=== PATIENT | male | born 1945 | race Caucasian/White ===

== ENCOUNTER 2018-09-14 20:30 | Inpatient (IN) | payer MEDICARE, OTHER ==
[~2018-09-14] VITALS: Ht 177.8 cm; Wt 82.8 kg
[2018-09-14] MEDS ORDERED: AMIODARONE 50 MG/ML, 3ML ONE (20:53)
[2018-09-14] MEDS ORDERED: PROPOFOL 100 ML IV ONE (20:53)
[2018-09-14 21:01] LABS: BASOPHILS # (AUTO) 0.09 x10^3/uL (0-0.1); BASOPHILS % (AUTO) 1 % (0-1); EOSINOPHILS # (AUTO) 0.06 x10^3/uL (0-0.4); EOSINOPHILS % (AUTO) 1 % (1-7); LYMPHOCYTES # (AUTO) 3.54 x10^3/uL (1-3.4); LYMPHOCYTES % (AUTO) 26 % (22-44); MD NO; MEAN CORPUSCULAR HEMOGLOBIN 35.3 pg (27.5-34.5); MEAN CORPUSCULAR HGB CONC 34.7 g/dL (33.2-36.2); MEAN CORPUSCULAR VOLUME 101.6 fL (81-97); MEAN PLATELET VOLUME 9.9 fL (7.4-10.4); MONOCYTES % (AUTO) 5 % (2-9); NEUTROPHILS # (AUTO) 9.07 x10^3/uL (1.8-6.8); NEUTROPHILS % (AUTO) 67 % (42-75); PLATELET COUNT 191 x10^3/uL (130-400); RED BLOOD COUNT 4.72 x10^6/uL (4.38-5.82); RED CELL DISTRIBUTION WIDTH 14.5 % (9.4-14.8)
--- NOTE | 2018-09-14 21:01 | NUR ---
AMIODARONE ADMINISTERED, PT RATE REDUCED TO 70-80S, NO COMPLAINTS AT THIS TIME
[2018-09-14 21:12] LABS: ALBUMIN 3.9 g/dL (3.4-5.0); ANION GAP 12 mmol/L (5-15); CALCIUM 8.9 mg/dL (8.5-10.1); CHLORIDE 108 mmol/L (98-107); CREATININE 1.15 mg/dL (0.7-1.3)
[2018-09-14 21:16] LABS: TROPONIN I 0.061 ng/mL (0.000-0.045)
[2018-09-14] MEDS ORDERED: ALLO300T PO (21:17)
[2018-09-14] MEDS ORDERED: LOSA25TA25 PO (21:17)
[2018-09-14] MEDS ORDERED: PANT20TA3 PO (21:17)
[2018-09-14] MEDS ORDERED: APIX5TAB PO (21:17)
[2018-09-14] MEDS ORDERED: AMIODARONE 900 MG in DEXTROSE 5% 482 ML IV PRN (21:35)
--- NOTE | 2018-09-14 21:54 | NUR ---
PT IN TO V-TACH 200-210 FOR 2ND TIME, 150 AMIO ADMIN, AMIO DRIP STARTED, PT HR 70-90. NO COMPLAINTS AT THIS TIME
[2018-09-14] MEDS ORDERED: MAGNESIUM SULFATE PMX 2GM/50ML 50 ML IVPB ONE (22:00)
[2018-09-14] MEDS ORDERED: FILTER 0.22 MICRON IV PRN (22:00)
[2018-09-14] MEDS ORDERED: AMIODARONE 50 MG/ML, 3ML IVPush ONE ×2 (22:00)
--- NOTE | 2018-09-14 22:25 | NUR ---
PT LAYING IN GURNEY, AWAKE/ALERT. NAD NOTED. NSR 80'S NOTED ON MONITOR. PT CONVERSING WITH SO AT BEDSIDE. MEDICATIONS INFUSING PER ORDER.
[2018-09-14] MEDS ORDERED: SODIUM CHLORIDE FLUSH 10ML SYR IVF PRN (22:30)
[2018-09-14] MEDS ORDERED: ATROPINE SYRINGE 0.1 MG/ML, 10ML ONE (23:00)
--- NOTE | 2018-09-14 23:05 | NUR ---
PT LAYING IN GUNREY, AWAKE/ALERT; NAD NOTED. PT DENIES CP/DIZZINESS/WEAKNESS AT THIS TIME. NSR ON MONITOR, HR 80'S.
--- NOTE | 2018-09-14 23:18 | NUR ---
REPORT CALLED TO [facility] IN ICU.
[2018-09-15 00:08] VITALS: BP 117/65
[2018-09-15] MEDS ORDERED: SODIUM CHLORIDE 0.9% 1,000 ML IV SCH (00:56)
[2018-09-15] MEDS ORDERED: POLYETHYLENE GLYCOL 17 GM PACKET PO PRN (01:00)
[2018-09-15] MEDS ORDERED: OXYcodone IR 5MG TABLET PO PRN (01:00)
[2018-09-15] MEDS ORDERED: BISACODYL 10 MG SUPP PR PRN (01:00)
[2018-09-15] MEDS ORDERED: ONDANSETRON ODT 4 MG PO PRN (01:00)
[2018-09-15] MEDS ORDERED: morphine SULFATE 10 MG/ML, 1ML IVPush PRN (01:00)
[2018-09-15] MEDS ORDERED: PROMETHAZINE 25 MG/ML, 1ML IM PRN (01:00)
[2018-09-15] MEDS ORDERED: DOCUSATE 100 MG CAPSULE PO PRN (01:00)
[2018-09-15] MEDS ORDERED: hydrALAzine 20 MG/ML, 1ML IVPush PRN (01:00)
[2018-09-15] MEDS ORDERED: LABETALOL 5MG/ML, 20ML IVPush PRN (01:00)
[2018-09-15] MEDS ORDERED: ONDANSETRON 2MG/ML, 2ML IVPush PRN (01:00)
[2018-09-15 02:03] LABS: FREE T4 (FREE THYROXINE) 0.79 ng/dL (0.76-1.46); THYROID STIMULATING HORMONE 2.89 mIU/L (0.358-3.740)
[2018-09-15 02:05] LABS: HEMOGLOBIN A1C 5.6 % (4.2-6.3)
[2018-09-15 04:00] VITALS: BP 106/71
[2018-09-15 04:27] LABS: BASOPHILS # (AUTO) 0.09 x10^3/uL (0-0.1); BASOPHILS % (AUTO) 1 % (0-1); EOSINOPHILS # (AUTO) 0.06 x10^3/uL (0-0.4); EOSINOPHILS % (AUTO) 1 % (1-7); LYMPHOCYTES # (AUTO) 3.06 x10^3/uL (1-3.4); LYMPHOCYTES % (AUTO) 32 % (22-44); MD NO; MEAN CORPUSCULAR HEMOGLOBIN 35.1 pg (27.5-34.5); MEAN CORPUSCULAR HGB CONC 34.3 g/dL (33.2-36.2); MEAN CORPUSCULAR VOLUME 102.2 fL (81-97); MEAN PLATELET VOLUME 10.2 fL (7.4-10.4); MONOCYTES # (AUTO) 0.73 x10^3/uL (0.2-0.8); MONOCYTES % (AUTO) 8 % (2-9); NEUTROPHILS # (AUTO) 5.63 x10^3/uL (1.8-6.8); NEUTROPHILS % (AUTO) 59 % (42-75); PLATELET COUNT 153 x10^3/uL (130-400); RED BLOOD COUNT 4.02 x10^6/uL (4.38-5.82); RED CELL DISTRIBUTION WIDTH 14.2 % (9.4-14.8)
[2018-09-15 04:39] LABS: CHLORIDE 112 mmol/L (98-107)
[2018-09-15 04:48] LABS: ALANINE AMINOTRANSFERASE 135 U/L (12-78); ALKALINE PHOSPHATASE 118 U/L (45-117); ANION GAP 11 mmol/L (5-15); BILIRUBIN,TOTAL 0.4 mg/dL (0.2-1.0); CALCIUM 7.9 mg/dL (8.5-10.1); CHOL/HDL RATIO 4.4; CHOLESTEROL, TOTAL 145 mg/dL (140-239); HDL CHOL % 23 % (26-37); HDL CHOLESTEROL (DIRECT) 33 mg/dL (40-60); LDL CHOLESTEROL,CALCULATED 80 mg/dL (54-169); LDL/HDL RATIO 2.4 (0.5-3.0); TOTAL PROTEIN 6.3 g/dL (6.4-8.2); TRIGLYCERIDES 160 mg/dL (50-200); VLDL CHOLESTEROL 32 mg/dL (0-25)
[2018-09-15 07:41] LABS: MICROSCOPIC AUTO
[2018-09-15 07:56] LABS: CULTURE INDICATED? NO
[2018-09-15 08:00] VITALS: BP 133/79
[2018-09-15] MEDS ORDERED: APIXABAN 5 MG TABLET PO SCH (09:00)
[2018-09-15] MEDS: ALLOPURINOL 300 MG TABLET PO SCH (09:11)
[2018-09-15] MEDS: LOSARTAN 25MG TABLET PO SCH (09:11)
[2018-09-15] MEDS: PANTOPRAZOLE 20MG TABLET PO SCH (09:11)
[2018-09-15] MEDS ORDERED: HEPARIN 5,000 UNITS/ML, 1ML IV ONE (10:00)
[2018-09-15] MEDS: HEPARIN 25,000 UNITS/500ML PMX 500 ML IV PRN (10:13)
[2018-09-15 12:57] VITALS: BP 114/73
[2018-09-15] MEDS: HEPARIN 5,000 UNITS/ML, 1ML IV PRN (17:57)
[2018-09-15 19:27] VITALS: BP 142/90
[2018-09-15] MEDS: ACETAMINOPHEN 325 MG TABLET PO PRN (20:53)
[2018-09-15] MEDS ORDERED: AMIODARONE 900 MG in DEXTROSE 5% 482 ML IV PRN (21:35)
[2018-09-16] MEDS: HEPARIN 5,000 UNITS/ML, 1ML IV PRN ×2 (01:09→13:50)
[2018-09-16 02:26] VITALS: BP 106/74
[2018-09-16] MEDS: HEPARIN 25,000 UNITS/500ML PMX 500 ML IV PRN ×2 (04:19→20:09)
[2018-09-16] MEDS: PANTOPRAZOLE 20MG TABLET PO SCH (05:03)
[2018-09-16 07:46] VITALS: BP 119/80
[2018-09-16] MEDS: ALLOPURINOL 300 MG TABLET PO SCH (09:01)
[2018-09-16] MEDS: LOSARTAN 25MG TABLET PO SCH (09:01)
[2018-09-16] MEDS ORDERED: FILTER 0.22 MICRON IV PRN (10:30)
[2018-09-16] MEDS: AMIODARONE 900 MG in DEXTROSE 5% 482 ML IV PRN ×2 (10:59→11:00)
[2018-09-16 13:10] VITALS: BP 114/69
[2018-09-16] MEDS: ACETAMINOPHEN 325 MG TABLET PO PRN ×2 (15:27→20:13)
[2018-09-16 20:34] VITALS: BP 126/85
[2018-09-17 03:05] VITALS: BP 122/85
[2018-09-17] MEDS: PANTOPRAZOLE 20MG TABLET PO SCH (05:44)
[2018-09-17 07:05] VITALS: BP 116/79
[2018-09-17] MEDS ORDERED: MANNITOL PMX 20% 500 ML IVPB PRN ×2 (07:30→14:00)
[2018-09-17] MEDS ORDERED: POTASSIUM CHLORIDE 80 MEQ, SODIUM BICARBONATE 8.4% 10 MEQ, MAGNESIUM SULFATE 0.5 GM, LI... IV PRN ×2 (07:30→14:00)
[2018-09-17] MEDS ORDERED: REGULAR INSULIN 62.5 UNITS in SODIUM CHLORIDE 0.9% 249.375 ML IV PRN (07:30)
[2018-09-17] MEDS ORDERED: EPINEPHRINE 2 MG in SODIUM CHLORIDE 0.9% 248 ML IV SCH ×2 (07:30→14:00)
[2018-09-17] MEDS ORDERED: PHENYLEPHRINE 10 MG in SODIUM CHLORIDE 0.9% 249 ML IV PRN ×2 (07:30→14:00)
[2018-09-17] MEDS ORDERED: CEFUROXIME 1.5 GM in SODIUM CHLORIDE 0.9% 50 ML IVPB PRN ×2 (07:30→14:00)
[2018-09-17] MEDS ORDERED: DEXMEDETOMIDINE 200 MCG in SODIUM CHLORIDE 0.9% 48 ML IV SCH ×2 (07:30→14:00)
[2018-09-17] MEDS: LOSARTAN 25MG TABLET PO SCH (08:23)
[2018-09-17] MEDS: ALLOPURINOL 300 MG TABLET PO SCH (08:23)
[2018-09-17] MEDS ORDERED: MIDAZOLAM 1 MG/ML, 2ML ONE ×2 (12:12→13:04)
[2018-09-17] MEDS ORDERED: BIVALIRUDIN 250 MG ONE ×2 (12:13→13:36)
[2018-09-17] MEDS ORDERED: TICAGRELOR 90 MG TABLET ONE (12:13)
[2018-09-17] MEDS ORDERED: FENTANYL PF 100 MCG/2ML ONE (12:13)
[2018-09-17] MEDS ORDERED: LIDOCAINE 1%, 20ML ONE (12:13)
[2018-09-17] MEDS ORDERED: VERAPAMIL 2.5 MG/ML, 2ML ONE (12:13)
[2018-09-17 12:20] VITALS: BP 113/66
[2018-09-17] MEDS ORDERED: ONDANSETRON 2MG/ML, 2ML ONE (12:59)
[2018-09-17] MEDS ORDERED: INSULIN LISPRO 100 UNITS/ML, PEN SQ-INSULIN SCH (13:30)
[2018-09-17] MEDS ORDERED: METOPROLOL TARTRATE 25 MG TABLET PO ONE (13:30)
[2018-09-17] MEDS ORDERED: CHLORHEXIDINE 15 ML UDC MM PRN (13:30)
[2018-09-17] MEDS ORDERED: DOPAMINE/D5W PMX 400 MG/250 ML ONE (13:51)
[2018-09-17] MEDS ORDERED: VANCOMYCIN 1,200 MG in SODIUM CHLORIDE 0.9% 250 ML IVPB PRN (14:00)
[2018-09-17] MEDS ORDERED: ALBUMIN HUMAN 5% 500 ML IV PRN (14:00)
[2018-09-17] MEDS ORDERED: ASPIRIN 325 MG TABLET EC ONE (14:03)
[2018-09-17] MEDS: SODIUM CHLORIDE 0.9% 1,000 ML IV SCH ×2 (14:03→22:03)
[2018-09-17] MEDS ORDERED: BIVALIRUDIN 250 MG in DEXTROSE 5% 100 ML IV SCH (14:03)
[2018-09-17] MEDS: ACETAMINOPHEN 325 MG TABLET PO PRN (16:04)
[2018-09-17 16:55] LABS: ANION GAP 9 mmol/L (5-15); CALCIUM 8.7 mg/dL (8.5-10.1); CHLORIDE 109 mmol/L (98-107)
[2018-09-17 17:00] LABS: CREATININE 0.89 mg/dL (0.7-1.3); TROPONIN I 0.215 ng/mL (0.000-0.045)
[2018-09-17] MEDS ORDERED: MUPIROCIN OINT 2%, 22GM TP SCH (21:00)
[2018-09-17] MEDS ORDERED: SODIUM CHLORIDE FLUSH 10ML SYR IVF SCH (21:00)
[2018-09-17] MEDS: TICAGRELOR 90 MG TABLET PO SCH (21:10)
[2018-09-17 23:46] LABS: TROPONIN I 0.577 ng/mL (0.000-0.045)
[2018-09-18 04:42] LABS: ANION GAP 7 mmol/L (5-15); CALCIUM 8.2 mg/dL (8.5-10.1); CHLORIDE 109 mmol/L (98-107); CREATININE 0.97 mg/dL (0.7-1.3)
[2018-09-18 05:58] VITALS: BP 104/64
[2018-09-18] MEDS: PANTOPRAZOLE 20MG TABLET PO SCH (05:59)
[2018-09-18] MEDS ORDERED: VANCOMYCIN 1,200 MG in SODIUM CHLORIDE 0.9% 250 ML IVPB PRN (07:30)
[2018-09-18] MEDS: TICAGRELOR 90 MG TABLET PO SCH ×2 (07:54→20:50)
[2018-09-18] MEDS: ASPIRIN 81 MG TABLET EC PO SCH (07:54)
[2018-09-18] MEDS: LOSARTAN 25MG TABLET PO SCH (07:55)
[2018-09-18] MEDS: ALLOPURINOL 300 MG TABLET PO SCH (07:55)
[2018-09-18] MEDS ORDERED: MAGNESIUM SULFATE PMX 2GM/50ML 50 ML IV ONE (08:00)
[2018-09-18] MEDS: ACETAMINOPHEN 325 MG TABLET PO PRN (12:52)
[2018-09-18 13:34] VITALS: BP 105/61
[2018-09-18] MEDS: AMIODARONE 900 MG in DEXTROSE 5% 482 ML IV PRN (14:48)
[2018-09-18] MEDS ORDERED: CEFAZOLIN PMX 1GM/50ML 50 ML IVPB ONE (16:30)
[2018-09-18 19:14] VITALS: BP 153/94
[2018-09-18] MEDS ORDERED: ATORVASTATIN 40 MG TABLET PO SCH (21:00)
[2018-09-19 00:23] VITALS: BP 96/60
[2018-09-19] MEDS: PANTOPRAZOLE 20MG TABLET PO SCH (05:21)
[2018-09-19 09:07] VITALS: BP 110/69
[2018-09-19] MEDS: ALLOPURINOL 300 MG TABLET PO SCH (09:18)
[2018-09-19] MEDS: LOSARTAN 25MG TABLET PO SCH (09:18)
[2018-09-19] MEDS: ASPIRIN 81 MG TABLET EC PO SCH (09:19)
[2018-09-19] MEDS: TICAGRELOR 90 MG TABLET PO SCH ×2 (09:19→20:25)
[2018-09-19] MEDS ORDERED: FENTANYL PF 100 MCG/2ML ONE ×3 (12:49→14:05)
[2018-09-19] MEDS ORDERED: CEFAZOLIN PMX 1GM/50ML 50 ML ONE (12:49)
[2018-09-19] MEDS ORDERED: MIDAZOLAM 1 MG/ML, 2ML ONE (12:49)
[2018-09-19] MEDS ORDERED: CEFAZOLIN 1,000 MG ONE (12:49)
[2018-09-19] MEDS ORDERED: LIDOCAINE 1%, 20ML ONE (12:49)
[2018-09-19] MEDS: CEFAZOLIN PMX 1GM/50ML 50 ML IVPB SCH ×2 (14:30→18:42)
[2018-09-19] MEDS ORDERED: HOLD MEDICATION MC PRN (14:30)
[2018-09-19 14:40] VITALS: BP 113/77
[2018-09-19] MEDS: METOPROLOL SUCCINATE 25 MG TAB.ER.24H PO SCH (15:48)
[2018-09-19] MEDS: AMIODARONE 200 MG TABLET PO SCH ×2 (15:48→20:25)
[2018-09-19] MEDS: ACETAMINOPHEN 325 MG TABLET PO PRN (17:59)
[2018-09-19] MEDS: HYDROcodone/APAP 5/325 TABLET PO PRN (18:33)
[2018-09-19 20:00] VITALS: BP 121/83
[2018-09-19] MEDS: SODIUM CHLORIDE FLUSH 10ML SYR IVF SCH (20:25)
[2018-09-20] MEDS: HYDROcodone/APAP 5/325 TABLET PO PRN ×2 (01:43→01:48)
[2018-09-20 02:55] VITALS: BP 99/64
[2018-09-20] MEDS: CEFAZOLIN PMX 1GM/50ML 50 ML IVPB SCH (03:00)
[2018-09-20] MEDS: PANTOPRAZOLE 20MG TABLET PO SCH (05:12)
[2018-09-20] MEDS: METOPROLOL SUCCINATE 25 MG TAB.ER.24H PO SCH (05:13)
[2018-09-20 07:39] VITALS: BP 102/62
[2018-09-20] MEDS: ASPIRIN 81 MG TABLET EC PO SCH (08:42)
[2018-09-20] MEDS: AMIODARONE 200 MG TABLET PO SCH ×2 (08:42→21:24)
[2018-09-20] MEDS: TICAGRELOR 90 MG TABLET PO SCH ×2 (08:42→21:23)
[2018-09-20] MEDS: ALLOPURINOL 300 MG TABLET PO SCH (08:42)
[2018-09-20] MEDS: LOSARTAN 25MG TABLET PO SCH (08:42)
[2018-09-20] MEDS: SODIUM CHLORIDE FLUSH 10ML SYR IVF SCH ×2 (08:43→21:24)
[2018-09-20 14:41] VITALS: BP 123/65
[2018-09-20] MEDS: ACETAMINOPHEN 325 MG TABLET PO PRN (18:26)
[2018-09-20 20:14] VITALS: BP 113/73
[2018-09-20 21:19] VITALS: BP 121/68
[2018-09-21 00:38] VITALS: BP 104/63
[2018-09-21 05:02] VITALS: BP 130/84
[2018-09-21] MEDS: PANTOPRAZOLE 20MG TABLET PO SCH (05:03)
[2018-09-21] MEDS: METOPROLOL SUCCINATE 25 MG TAB.ER.24H PO SCH (05:03)
[2018-09-21 05:09] LABS: ALBUMIN 3.3 g/dL (3.4-5.0); ANION GAP 12 mmol/L (5-15); CALCIUM 8.8 mg/dL (8.5-10.1); CHLORIDE 108 mmol/L (98-107); CREATININE 1.07 mg/dL (0.7-1.3)
[2018-09-21 05:12] LABS: BASOPHILS # (AUTO) 0.05 x10^3/uL (0-0.1); BASOPHILS % (AUTO) 1 % (0-1); EOSINOPHILS # (AUTO) 0.16 x10^3/uL (0-0.4); EOSINOPHILS % (AUTO) 2 % (1-7); LYMPHOCYTES # (AUTO) 2.13 x10^3/uL (1-3.4); LYMPHOCYTES % (AUTO) 20 % (22-44); MD NO; MEAN CORPUSCULAR HEMOGLOBIN 35.2 pg (27.5-34.5); MEAN CORPUSCULAR HGB CONC 34.3 g/dL (33.2-36.2); MEAN CORPUSCULAR VOLUME 102.7 fL (81-97); MEAN PLATELET VOLUME 9.6 fL (7.4-10.4); MONOCYTES # (AUTO) 0.73 x10^3/uL (0.2-0.8); MONOCYTES % (AUTO) 7 % (2-9); NEUTROPHILS # (AUTO) 7.68 x10^3/uL (1.8-6.8); NEUTROPHILS % (AUTO) 71 % (42-75); PLATELET COUNT 192 x10^3/uL (130-400); RED BLOOD COUNT 4.33 x10^6/uL (4.38-5.82); RED CELL DISTRIBUTION WIDTH 14.5 % (9.4-14.8)
[2018-09-21 06:38] VITALS: BP 130/81
[2018-09-21] MEDS: ASPIRIN 81 MG TABLET EC PO SCH (09:22)
[2018-09-21] MEDS: LOSARTAN 25MG TABLET PO SCH (09:22)
[2018-09-21] MEDS: CLOPIDOGREL 75 MG TABLET PO SCH (09:22)
[2018-09-21] MEDS: ACETAMINOPHEN 325 MG TABLET PO PRN ×3 (09:22→23:09)
[2018-09-21] MEDS: ALLOPURINOL 300 MG TABLET PO SCH (09:22)
[2018-09-21] MEDS: AMIODARONE 200 MG TABLET PO SCH ×2 (09:23→21:34)
[2018-09-21] MEDS: SODIUM CHLORIDE FLUSH 10ML SYR IVF SCH ×2 (09:25→21:34)
[2018-09-21 12:30] VITALS: BP 115/75
[2018-09-21 20:08] VITALS: BP 102/66
[2018-09-21 21:32] VITALS: BP 108/72
[2018-09-22 01:44] VITALS: BP 95/63
[2018-09-22 05:07] VITALS: BP 111/76
[2018-09-22] MEDS: PANTOPRAZOLE 20MG TABLET PO SCH (05:08)
[2018-09-22] MEDS: METOPROLOL SUCCINATE 25 MG TAB.ER.24H PO SCH (05:08)
[2018-09-22 07:02] VITALS: BP 101/66
[2018-09-22] MEDS: SODIUM CHLORIDE FLUSH 10ML SYR IVF SCH (09:35)
[2018-09-22] MEDS: AMIODARONE 200 MG TABLET PO SCH (09:35)
[2018-09-22] MEDS: CLOPIDOGREL 75 MG TABLET PO SCH (09:35)
[2018-09-22] MEDS: ASPIRIN 81 MG TABLET EC PO SCH (09:36)
[2018-09-22] MEDS: ALLOPURINOL 300 MG TABLET PO SCH (09:36)
[2018-09-22] MEDS: LOSARTAN 25MG TABLET PO SCH (09:36)
[2018-09-22] MEDS ORDERED: AMIO200T42 PO (10:47)
[2018-09-22] MEDS ORDERED: ASPI81TA45 PO (10:47)
[2018-09-22] MEDS ORDERED: CLOP75TA PO (10:47)
[2018-09-22] MEDS ORDERED: METO25TA91 PO (10:47)
[2018-09-22 12:16] VITALS: BP 131/72
[2018-09-22] MEDS ORDERED: DIPH,PERTUSS(ACELL),TET PED/PF 0.5 ML IM-VACC ONE (14:30)
[2018-09-22] MEDS ORDERED: DIPH,PERTUSS(ACELL),TET VAC/PF NC IM-VACC ONE (15:00)
== END 2018-09-22 15:40 | disposition home or self-care (01) | DRG 224 ==
LOC: ED 22:22 → EDIP 22:28 → ED 22:51 → ICU 23:31 → 5SO 09-15 14:29 → CCU 09-17 14:19 → 5SO 09-18 13:26 → DCLOUNGE 09-22 15:11
PROVIDERS: ADMIT Internal Medicine; ATTEND Internal Medicine
PROC: 0JH608Z Insertion of Defibrillator Generator into Chest Subcutaneous Tissue and Fascia, Open Approach (ICD-10-PCS; principal; 2018-09-14)
PROC: 02HK3KZ Insertion of Defibrillator Lead into Right Ventricle, Percutaneous Approach (ICD-10-PCS; 2018-09-14)
PROC: 4A023N7 Measurement of Cardiac Sampling and Pressure, Left Heart, Percutaneous Approach (ICD-10-PCS; 2018-09-14)
PROC: 02H63KZ Insertion of Defibrillator Lead into Right Atrium, Percutaneous Approach (ICD-10-PCS; 2018-09-14)
PROC: 027037Z Dilation of Coronary Artery, One Artery with Four or More Drug-eluting Intraluminal Devices, Percutaneous Approach (ICD-10-PCS; 2018-09-14)
PROC: B2111ZZ Fluoroscopy of Multiple Coronary Arteries using Low Osmolar Contrast (ICD-10-PCS; 2018-09-14)
PROC: B2151ZZ Fluoroscopy of Left Heart using Low Osmolar Contrast (ICD-10-PCS; 2018-09-14)
PROC: 5A09357 Assistance with Respiratory Ventilation, Less than 24 Consecutive Hours, Continuous Positive Airway Pressure (ICD-10-PCS; 2018-09-16)
PROC: 5A09357 Assistance with Respiratory Ventilation, Less than 24 Consecutive Hours, Continuous Positive Airway Pressure (ICD-10-PCS; 2018-09-17)
PROC: 5A09357 Assistance with Respiratory Ventilation, Less than 24 Consecutive Hours, Continuous Positive Airway Pressure (ICD-10-PCS; 2018-09-19)
DX: I47.2 Ventricular tachycardia (principal); R65.11 Systemic inflammatory response syndrome (SIRS) of non-infectious origin with acute organ dysfunction; D68.69 Other thrombophilia; L76.32 Postprocedural hematoma of skin and subcutaneous tissue following other procedure; I48.0 Paroxysmal atrial fibrillation; I11.0 Hypertensive heart disease with heart failure; I48.92 Unspecified atrial flutter; I50.9 Heart failure, unspecified; I25.5 Ischemic cardiomyopathy; I48.2 Chronic atrial fibrillation; K21.9 Gastro-esophageal reflux disease without esophagitis; M1A.9XX0 Chronic gout, unspecified, without tophus (tophi); I25.10 Atherosclerotic heart disease of native coronary artery without angina pectoris; Y92.239 Unspecified place in hospital as the place of occurrence of the external cause; Z79.899 Other long term (current) drug therapy; Z79.01 Long term (current) use of anticoagulants; Z86.718 Personal history of other venous thrombosis and embolism; Z87.891 Personal history of nicotine dependence; Z23 Encounter for immunization; Y83.1 Surgical operation with implant of artificial internal device as the cause of abnormal reaction of the patient, or of later complication, without mention of misadventure at the time of the procedure
CPT/HCPCS: 36415; 71045; 80048; 80053; 80061; 81001; 82040; 83036; 83735; 84439; 84443; 84484; 85025; 85520; 86850; 86900; 87081; 90656; 93005; 93306; 93458; 93880; 96365; 96368; 96375; 99156; 99157; C1769; C1894; C9600; G0378; J0461; J0583; J0690; J0697; J1265; J1644; J2250; J2405; J3010; J3370; J3475; J3480; J3490; P9045; C1725; C1874; C1887; J0171; J0282; J1815; J2370; J7030; J7050; J7060; Q9967

== ENCOUNTER → 2018-11-09 | Outpatient (CLI) | payer MEDICARE, OTHER ==
[~2018-11-09] MED LIST: ALLO300T PO; AMIO200T42 PO; APIX5TAB PO; ASPI81TA45 PO; CLOP75TA PO; LOSA25TA25 PO; METO25TA91 PO; PANT20TA3 PO
[2018-11-09 09:47] LABS: ANION GAP 6 mmol/L (5-15); CHLORIDE 111 mmol/L (98-107); CREATININE 0.98 mg/dL (0.7-1.3)
== END | disposition home or self-care (01) ==
LOC: LAB 09:22
PROVIDERS: ATTEND Internal Medicine Cardiovascular Disease
DX: I48.0 Paroxysmal atrial fibrillation (principal)
CPT/HCPCS: 36415; 80048

== ENCOUNTER 2020-05-23 07:23 | Day surgery (SDC) | payer MEDICARE, OTHER | END 2020-05-23 08:04 | disposition home or self-care (01) | LOC: CACL 07:23 | PROVIDERS: ATTEND Internal Medicine Cardiovascular Disease | DX: Z02.9 Encounter for administrative examinations, unspecified (principal) ==

== ENCOUNTER 2021-02-20 06:18 | Observation (INO) | payer MEDICARE, OTHER ==
[~2021-02-20] VITALS: Ht 177.8 cm; Wt 119.0 kg
[~2021-02-20 06:18] MED LIST changes: -PANT20TA3 PO; +PANT20TA4 PO
[2021-02-20] MEDS ORDERED: SODIUM CHLORIDE 0.9% 1,000 ML IV SCH (07:30)
[2021-02-20] MEDS ORDERED: EVOL140P3 SQ (07:39)
[2021-02-20] MEDS ORDERED: RIVA20TA PO (07:39)
[2021-02-20] MEDS ORDERED: SILD20TA2 PO (07:39)
[2021-02-20] MEDS ORDERED: METO25TA91 PO (07:39)
[2021-02-20] MEDS ORDERED: FEXO1TAB29 PO (07:39)
[2021-02-20] MEDS ORDERED: ACET-1600 PO (07:41)
[2021-02-20 07:47] VITALS: BP 118/79
[2021-02-20] MEDS ORDERED: FENTANYL PF 100 MCG/2ML ONE (08:00)
[2021-02-20 08:16] LABS: INTERNATIONAL NORMALIZED RATIO 1.1 (0.93-1.1); PROTHROMBIN TIME 11.8 Seconds (9.6-11.5)
[2021-02-20] MEDS ORDERED: PROPOFOL 10 MG/ML, 20ML ONE (08:29)
[2021-02-20] MEDS ORDERED: ROCURONIUM 10MG/ML,5ML ONE ×2 (08:29→09:24)
[2021-02-20] MEDS ORDERED: SUCCINYLCHOLINE 20 MG/ML, 10ML ONE (08:29)
[2021-02-20] MEDS ORDERED: NEOSTIGMINE 1 MG/ML, 10ML ONE ×2 (08:29→08:56)
[2021-02-20] MEDS ORDERED: PHENYLEPHRINE 10 MG/ML ONE (08:29)
[2021-02-20] MEDS ORDERED: ONDANSETRON 2MG/ML, 2ML ONE (08:29)
[2021-02-20] MEDS ORDERED: GLYCOPYRROLATE 0.2MG/1ML, 5ML ONE (08:29)
[2021-02-20] MEDS ORDERED: DEXAMETHASONE 4 MG/ML, 1ML ONE ×2 (08:29)
[2021-02-20] MEDS ORDERED: EPHEDRINE 50 MG/ML, 1ML IVPush PRN (08:30)
[2021-02-20] MEDS ORDERED: OXYcodone 5 MG/5 ML ORAL.SOL UDC PO PRN (08:30)
[2021-02-20] MEDS ORDERED: PROMETHAZINE 25 MG/ML, 1ML IVPush PRN (08:30)
[2021-02-20] MEDS ORDERED: FENTANYL PF 100 MCG/2ML IV PRN (08:30)
[2021-02-20] MEDS ORDERED: hydrALAzine 20 MG/ML, 1ML IV PRN (08:30)
[2021-02-20] MEDS ORDERED: ONDANSETRON 2MG/ML, 2ML IVPush PRN ×2 (08:30→11:30)
[2021-02-20] MEDS ORDERED: ACETAMINOPHEN 325 MG TABLET PO PRN ×2 (08:30→11:30)
[2021-02-20] MEDS ORDERED: HYDROmorphone 1 MG/ML, 1ML INJ IVPush PRN (08:30)
[2021-02-20] MEDS ORDERED: LABETALOL 5MG/ML, 20ML IV PRN (08:30)
[2021-02-20] MEDS ORDERED: HEPARIN 1,000 UNITS/ML, 10ML ONE ×4 (09:19→10:16)
[2021-02-20] MEDS ORDERED: ZOLPIDEM 5MG TABLET PO PRN (11:30)
[2021-02-20] MEDS: RIVAROXABAN 20 MG TABLET PO SCH (11:30)
[2021-02-20] MEDS ORDERED: SILDENAFIL 20 MG TABLET PO PRN (11:30)
[2021-02-20] MEDS ORDERED: RIVAROXABAN 20 MG TABLET PO SCH (11:30)
[2021-02-20 12:45] VITALS: BP 92/65
[2021-02-20] MEDS ORDERED: LORATADINE/PSE 5/120MG TAB.ER.12H PO PRN (13:30)
[2021-02-20 21:14] VITALS: BP 110/74
[2021-02-20] MEDS: LOSARTAN 25MG TABLET PO SCH ×2 (21:26→21:43)
[2021-02-20] MEDS: ACETAMINOPHEN 500 MG TABLET PO SCH (21:26)
[2021-02-20] MEDS: COLCHICINE 0.6 MG CAPSULE PO SCH (21:27)
[2021-02-20] MEDS ORDERED: ALLOPURINOL 300 MG TABLET PO SCH (22:30)
[2021-02-20] MEDS ORDERED: CLOPIDOGREL 75 MG TABLET PO SCH (22:30)
[2021-02-21 01:27] VITALS: BP 99/64
[2021-02-21 08:16] VITALS: BP 101/63
[2021-02-21] MEDS ORDERED: ALLOPURINOL 300 MG TABLET PO SCH (09:00)
[2021-02-21] MEDS ORDERED: METOPROLOL SUCCINATE 25 MG TAB.ER.24H PO SCH (09:00)
[2021-02-21] MEDS ORDERED: PANTOPRAZOLE 20MG TABLET PO SCH (09:00)
[2021-02-21] MEDS ORDERED: CLOPIDOGREL 75 MG TABLET PO SCH (09:00)
[2021-02-21] MEDS: ACETAMINOPHEN 500 MG TABLET PO SCH (09:42)
[2021-02-21] MEDS: COLCHICINE 0.6 MG CAPSULE PO SCH (09:42)
[2021-02-21] MEDS: RIVAROXABAN 20 MG TABLET PO SCH (09:42)
[2021-02-21 09:50] VITALS: BP 121/71
[2021-02-21] MEDS ORDERED: COLC0.6C3 PO (10:02)
== END 2021-02-21 12:13 | disposition home or self-care (01) ==
LOC: CACL 06:18 → ORIP 11:04 → 5SO 13:06 → DCLOUNGE 02-21 12:09
PROVIDERS: ADMIT Internal Medicine Cardiovascular Disease; ATTEND Internal Medicine Cardiovascular Disease
DX: I48.4 Atypical atrial flutter (principal); Z20.822 Contact with and (suspected) exposure to COVID-19; I48.91 Unspecified atrial fibrillation; I47.2 Ventricular tachycardia; I25.10 Atherosclerotic heart disease of native coronary artery without angina pectoris; F10.10 Alcohol abuse, uncomplicated; Z79.01 Long term (current) use of anticoagulants; Z95.0 Presence of cardiac pacemaker; Z79.899 Other long term (current) drug therapy
CPT/HCPCS: 36415; 85347; 85610; 87635; 93312; 93321; 93325; 93613; 93655; 93656; 93657; 93662; C1730; C1732; C1759; C1766; C1769; C1893; C1894; C8929; G0378; J0330; J1100; J1644; J2370; J2405; J2704; J2710; J3010; J3490; Q9957; 93621